=== PATIENT | male | born 1955 | race African-American/Black ===

== ENCOUNTER → 2016-04-27 | Outpatient (CLI) | payer OTHER ==
[~2016-04-27] MED LIST: INFLIXIMAB IV ONE; SODIUM CHLORIDE 0.9% 250 ML in EMPTY BAG 1 BAG IV PRN; SODIUM CHLORIDE 0.9% 500 ML in EMPTY BAG 1 BAG IV PRN; SODIUM CHLORIDE 0.9% IV ONE
[2016-04-27 12:47] VITALS: RESP 18; TEMP 98.1
[2016-04-27 14:42] VITALS: BP 167/76; PULSE 58
[2016-04-27 15:16] LABS: Aty Lym Flag Marked; CHCM 33.2; HCT 48.4 % (39.0-53.0); HDW 2.73; HGB 15.9 gm/dL (13.0-17.5); MCV 87.9 fL (80.0-100.0); Mean Platelet Volume 10.6; RBC 5.51 m/uL (4.30-5.90); RDW 13.6 % (11.5-15.5); WBC 9.2 k/uL (3.8-10.6); WBC (Perox) 12.87
[2016-04-27 15:32] LABS: ALT 50 U/L (21-72); AST 32 U/L (17-59); Alkaline Phosphatase 104 U/L (38-126); Anion Gap 13 mmol/L; Bilirubin, Delta 0.2 mg/dL (0.0-0.2); Blood Urea Nitrogen 18 mg/dL (9-20); Calcium 8.9 mg/dL (8.4-10.2); Carbon Dioxide 25 mmol/L (22-30); Chloride 102 mmol/L (98-107); Glucose 85 mg/dL (74-99); Non-African American GFR(MDRD) >60 (>60 ml/min/1.73 sqM); Potassium 4.6 mmol/L (3.5-5.1); Sodium 140 mmol/L (137-145); Total Bilirubin 0.5 mg/dL (0.2-1.3); Total Protein 7.9 g/dL (6.3-8.2)
[2016-04-27 16:27] LABS: Add Differential Manual Differential
[2016-04-27 16:28] LABS: Nucleated Red Blood Cells 0 /100 WBC (0-0); Total Cells Counted 100
[2016-04-27 17:08] LABS: Appearance,Urine Clear (Clear); Bilirubin,Urine Negative (Negative); Glucose,Urine (UA) Negative (Negative); Ketones,Urine Negative (Negative); Leukocyte Esterase,Urine Negative (Negative); Nitrite,Urine Negative (Negative); PH, Urine 6.5 (5.0-8.0); Particle Count 1571; Protein,Urine 1+ (Negative); RBC,Urine 3 /hpf (0-5); Specific Gravity,Urine 1.022 (1.001-1.035); Sperm,Urine Occasional /hpf; Squamous Epithelial Cell,Urine <1 /hpf (0-4); UA Billing (MACRO vs. MICRO) MICRO; WBC,Urine 1 /hpf (0-5)
[2016-04-27 19:22] LABS: Erythrocyte Sedimentation Rate 11 mm/hr (0-15)
== END | disposition home or self-care (01) ==
LOC: PROCWHC3 12:11
PROVIDERS: ATTEND Internal Medicine Rheumatology
DX: L40.59 Other psoriatic arthropathy (principal)
CPT/HCPCS: 80053; 85652; 82248; 85025; 81001; 96361; 96413; 96415; 36415; J1745

== ENCOUNTER → 2016-07-20 | Outpatient (CLI) | payer OTHER ==
[~2016-07-20] MED LIST changes: +INFLIXIMAB IV NR; -INFLIXIMAB IV ONE; +SODIUM CHLORIDE 0.9% IV NR; -SODIUM CHLORIDE 0.9% IV ONE
[2016-07-20 10:23] VITALS: RESP 16; TEMP 98
[2016-07-20 11:04] LABS: Basophils # (A) 0.1 k/uL (0-0.2); Basophils % (A) 1 %; CH 28.9; CHCM 33.2; Eosinophils # (A) 0.5 k/uL (0-0.7); Eosinophils % (A) 6 %; HCT 46.6 % (39.0-53.0); HDW 2.69; HGB 15.5 gm/dL (13.0-17.5); Luc # (Auto) 0.29; Luc % (Auto) 4; Lymphocytes # (A) 2.9 k/uL (1.0-4.8); Lymphocytes % (A) 35 %; MCH 29.2 pg (25.0-35.0); MCHC 33.3 g/dL (31.0-37.0); MCV 87.6 fL (80.0-100.0); Mean Platelet Volume 9.6; Monocytes # (A) 0.4 k/uL (0-1.0); Monocytes % (A) 5 %; Neutrophils # (A) 4.1 k/uL (1.3-7.7); Neutrophils % (A) 50 %; RBC 5.32 m/uL (4.30-5.90); RDW 13.8 % (11.5-15.5); WBC 8.2 k/uL (3.8-10.6); WBC (Perox) 7.85
[2016-07-20 11:23] LABS: ALT 50 U/L (21-72); AST 36 U/L (17-59); Alkaline Phosphatase 97 U/L (38-126); Anion Gap 9 mmol/L; Bilirubin, Delta 0.4 mg/dL (0.0-0.2); Blood Urea Nitrogen 15 mg/dL (9-20); Calcium 8.7 mg/dL (8.4-10.2); Carbon Dioxide 26 mmol/L (22-30); Chloride 103 mmol/L (98-107); Glucose 131 mg/dL (74-99); Non-African American GFR(MDRD) >60 (>60 ml/min/1.73 sqM); Sodium 138 mmol/L (137-145); Total Bilirubin 0.8 mg/dL (0.2-1.3); Total Protein 7.6 g/dL (6.3-8.2)
[2016-07-20 11:25] LABS: Potassium 4.3 mmol/L (3.5-5.1)
[2016-07-20 11:43] VITALS: PULSE 56
[2016-07-20 11:44] VITALS: BP 142/70
[2016-07-20 11:59] LABS: Erythrocyte Sedimentation Rate 11 mm/hr (0-15)
[2016-07-20 13:47] LABS: Appearance,Urine Clear (Clear); Bilirubin,Urine Negative (Negative); Glucose,Urine (UA) Negative (Negative); Ketones,Urine Negative (Negative); Leukocyte Esterase,Urine Negative (Negative); Nitrite,Urine Negative (Negative); PH, Urine 6.5 (5.0-8.0); Protein,Urine Negative (Negative); UA Billing (MACRO vs. MICRO) CHEM; Urobilinogen,Urine <2.0 mg/dL (<2.0)
== END | disposition home or self-care (01) ==
LOC: PROCWHC3 09:58
PROVIDERS: ATTEND Internal Medicine Rheumatology
DX: L40.59 Other psoriatic arthropathy (principal)
CPT/HCPCS: 80053; 85652; 82248; 85025; 81003; 96413; 96415; 36415; J1745

== ENCOUNTER → 2016-08-31 | Outpatient (CLI) | payer OTHER ==
[~2016-08-31] MED LIST changes: +ACETAMINOPHEN TAB 325 MG TAB PO ONE; -INFLIXIMAB IV NR; +INFLIXIMAB IV ONE; -SODIUM CHLORIDE 0.9% IV NR; +SODIUM CHLORIDE 0.9% IV ONE; +diphenhydrAMINE 25 MG CAP PO ONE; +diphenhydrAMINE 50 MG/ML 1 ML VIAL IVP ONE
[2016-08-31 13:34] VITALS: RESP 18
[2016-08-31 14:02] VITALS: BP 132/63; PULSE 59
== END | disposition home or self-care (01) ==
LOC: PROCWHC3 11:54
PROVIDERS: ATTEND Internal Medicine Rheumatology
DX: L40.50 Arthropathic psoriasis, unspecified (principal)
CPT/HCPCS: 96361; 96413; 96415; J1200; J1745

== ENCOUNTER → 2016-10-12 | Outpatient (CLI) | payer OTHER ==
[2016-10-12 12:25] VITALS: TEMP 98.1
[2016-10-12 13:00] LABS: Basophils % (A) 0 %; CH 28.7; Eosinophils % (A) 0 %; HCT 47.6 % (39.0-53.0); HDW 2.61; HGB 15.8 gm/dL (13.0-17.5); Luc # (Auto) 0.09; Luc % (Auto) 1; Lymphocytes # (A) 1.3 k/uL (1.0-4.8); Lymphocytes % (A) 19 %; MCH 29.1 pg (25.0-35.0); MCHC 33.3 g/dL (31.0-37.0); MCV 87.4 fL (80.0-100.0); Mean Platelet Volume 10.1; Monocytes # (A) 0.2 k/uL (0-1.0); Monocytes % (A) 3 %; Neutrophils # (A) 5.4 k/uL (1.3-7.7); Neutrophils % (A) 77 %; RBC 5.44 m/uL (4.30-5.90); RDW 13.4 % (11.5-15.5); WBC (Perox) 7.17
[2016-10-12 13:59] VITALS: BP 156/73; PULSE 58; RESP 16
[2016-10-12 14:17] LABS: Erythrocyte Sedimentation Rate 14 mm/hr (0-15)
[2016-10-12 16:00] LABS: Appearance,Urine Clear (Clear); Bilirubin,Urine Negative (Negative); Glucose,Urine (UA) Negative (Negative); Ketones,Urine Negative (Negative); Leukocyte Esterase,Urine Negative (Negative); Nitrite,Urine Negative (Negative); Protein,Urine Negative (Negative); Specific Gravity,Urine 1.009 (1.001-1.035); UA Billing (MACRO vs. MICRO) CHEM; Urobilinogen,Urine <2.0 mg/dL (<2.0)
[2016-10-12 16:13] LABS: ALT 50 U/L (21-72); AST 31 U/L (17-59); Alkaline Phosphatase 99 U/L (38-126); Anion Gap 11 mmol/L; Blood Urea Nitrogen 17 mg/dL (9-20); Calcium 9.1 mg/dL (8.4-10.2); Carbon Dioxide 24 mmol/L (22-30); Chloride 102 mmol/L (98-107); Glucose 121 mg/dL (74-99); Non-African American GFR(MDRD) >60 (>60 ml/min/1.73 sqM); Potassium 4.7 mmol/L (3.5-5.1); Sodium 137 mmol/L (137-145); Total Bilirubin 0.6 mg/dL (0.2-1.3); Total Protein 7.5 g/dL (6.3-8.2)
== END | disposition home or self-care (01) ==
LOC: PROCWHC3 12:03
PROVIDERS: ATTEND Internal Medicine Rheumatology
DX: L40.50 Arthropathic psoriasis, unspecified (principal)
CPT/HCPCS: 80053; 85652; 85025; 81003; 36430; 36415; J1745

== ENCOUNTER → 2016-11-29 | Outpatient (CLI) | payer OTHER | END | disposition home or self-care (01) | LOC: RADMRIMAIN 19:04 | PROVIDERS: ATTEND Internal Medicine Rheumatology | DX: Z53.9 Procedure and treatment not carried out, unspecified reason (principal) ==

== ENCOUNTER → 2016-11-30 | Outpatient (CLI) | payer OTHER ==
[~2016-11-30] MED LIST changes: -SODIUM CHLORIDE 0.9% 250 ML in EMPTY BAG 1 BAG IV PRN; +diphenhydrAMINE 50 MG CAP PO STA
[2016-11-30 12:17] VITALS: TEMP 98.2
[2016-11-30 12:31] LABS: Basophils # (A) 0.1 k/uL (0-0.2); Basophils % (A) 1 %; CH 29.6; CHCM 33.9; Eosinophils # (A) 0.4 k/uL (0-0.7); Eosinophils % (A) 5 %; HCT 45.7 % (39.0-53.0); HDW 2.63; HGB 15.6 gm/dL (13.0-17.5); Luc # (Auto) 0.41; Luc % (Auto) 4; Lymphocytes % (A) 32 %; MCH 29.9 pg (25.0-35.0); MCHC 34.1 g/dL (31.0-37.0); MCV 87.7 fL (80.0-100.0); Mean Platelet Volume 10.2; Monocytes # (A) 0.7 k/uL (0-1.0); Monocytes % (A) 7 %; Neutrophils # (A) 4.8 k/uL (1.3-7.7); Neutrophils % (A) 52 %; RBC 5.21 m/uL (4.30-5.90); RDW 14.9 % (11.5-15.5); WBC 9.3 k/uL (3.8-10.6); WBC (Perox) 8.62
[2016-11-30 12:39] LABS: ALT 55 U/L (21-72); AST 33 U/L (17-59); Alkaline Phosphatase 108 U/L (38-126); Anion Gap 9 mmol/L; Blood Urea Nitrogen 17 mg/dL (9-20); Calcium 8.9 mg/dL (8.4-10.2); Carbon Dioxide 25 mmol/L (22-30); Chloride 103 mmol/L (98-107); Glucose 91 mg/dL (74-99); Non-African American GFR(MDRD) >60 (>60 ml/min/1.73 sqM); Potassium 4.4 mmol/L (3.5-5.1); Sodium 137 mmol/L (137-145); Total Bilirubin 0.5 mg/dL (0.2-1.3); Total Protein 7.5 g/dL (6.3-8.2)
[2016-11-30 12:49] VITALS: RESP 18
[2016-11-30 13:44] VITALS: BP 147/68; PULSE 56
[2016-11-30 16:01] LABS: Erythrocyte Sedimentation Rate 11 mm/hr (0-15)
[2016-11-30 16:11] LABS: Appearance,Urine Clear (Clear); Bilirubin,Urine Negative (Negative); Glucose,Urine (UA) Negative (Negative); Ketones,Urine Negative (Negative); Leukocyte Esterase,Urine Negative (Negative); Nitrite,Urine Negative (Negative); PH, Urine 7.5 (5.0-8.0); Protein,Urine Negative (Negative); Specific Gravity,Urine 1.015 (1.001-1.035); UA Billing (MACRO vs. MICRO) CHEM; Urobilinogen,Urine <2.0 mg/dL (<2.0)
== END | disposition home or self-care (01) ==
LOC: PROCWHC3 11:51
PROVIDERS: ATTEND Internal Medicine Rheumatology
DX: L40.50 Arthropathic psoriasis, unspecified (principal)
CPT/HCPCS: 80053; 85652; 85025; 81003; 96361; 96413; 96415; 36415; J1745

== ENCOUNTER → 2017-02-01 | Outpatient (CLI) | payer OTHER ==
[~2017-02-01] MED LIST changes: -diphenhydrAMINE 50 MG CAP PO STA
[2017-02-01 12:41] VITALS: TEMP 98.6
[2017-02-01 13:18] LABS: Basophils # (A) 0.1 k/uL (0-0.2); Basophils % (A) 1 %; CH 28.8; CHCM 32.4; Eosinophils # (A) 0.5 k/uL (0-0.7); Eosinophils % (A) 5 %; HCT 47.9 % (39.0-53.0); HDW 2.47; HGB 15.3 gm/dL (13.0-17.5); Luc # (Auto) 0.29; Luc % (Auto) 3; Lymphocytes # (A) 3.3 k/uL (1.0-4.8); Lymphocytes % (A) 32 %; MCH 28.5 pg (25.0-35.0); MCV 89.2 fL (80.0-100.0); Mean Platelet Volume 10.2; Monocytes % (A) 9 %; Neutrophils # (A) 5.4 k/uL (1.3-7.7); Neutrophils % (A) 51 %; RBC 5.37 m/uL (4.30-5.90); RDW 14.8 % (11.5-15.5); WBC 10.5 k/uL (3.8-10.6); WBC (Perox) 10.69
[2017-02-01 13:31] VITALS: RESP 14
[2017-02-01 13:40] LABS: ALT 59 U/L (21-72); AST 33 U/L (17-59); Alkaline Phosphatase 109 U/L (38-126); Anion Gap 9 mmol/L; Blood Urea Nitrogen 23 mg/dL (9-20); Calcium 9.3 mg/dL (8.4-10.2); Carbon Dioxide 27 mmol/L (22-30); Chloride 101 mmol/L (98-107); Glucose 91 mg/dL (74-99); Non-African American GFR(MDRD) >60 (>60 ml/min/1.73 sqM); Potassium 4.2 mmol/L (3.5-5.1); Sodium 137 mmol/L (137-145); Total Bilirubin 0.3 mg/dL (0.2-1.3); Total Protein 7.6 g/dL (6.3-8.2)
[2017-02-01 14:19] LABS: Erythrocyte Sedimentation Rate 19 mm/hr (0-15)
[2017-02-01 15:51] VITALS: BP 122/61; PULSE 5
[2017-02-01 16:32] LABS: Appearance,Urine Clear (Clear); Bilirubin,Urine Negative (Negative); Glucose,Urine (UA) Negative (Negative); Ketones,Urine Negative (Negative); Leukocyte Esterase,Urine Negative (Negative); Nitrite,Urine Negative (Negative); PH, Urine 5.5 (5.0-8.0); Protein,Urine Trace (Negative); Specific Gravity,Urine 1.028 (1.001-1.035); UA Billing (MACRO vs. MICRO) CHEM; Urobilinogen,Urine <2.0 mg/dL (<2.0)
== END | disposition home or self-care (01) ==
LOC: PROCWHC3 12:27
PROVIDERS: ATTEND Internal Medicine Rheumatology
DX: L40.50 Arthropathic psoriasis, unspecified (principal)
CPT/HCPCS: 80053; 85652; 85025; 81003; 96361; 96375; 96413; 96415; 36415; J1200; J1745

== ENCOUNTER → 2017-03-14 | Outpatient (CLI) | payer OTHER ==
[~2017-03-14] MED LIST changes: -INFLIXIMAB IV ONE; -SODIUM CHLORIDE 0.9% IV ONE
[2017-03-14 12:03] VITALS: TEMP 97.9
[2017-03-14] MEDS: SODIUM CHLORIDE 0.9% IV ONE ×2 (12:04→12:13)
[2017-03-14] MEDS: INFLIXIMAB IV ONE ×2 (12:04→12:13)
[2017-03-14 12:32] LABS: Basophils # (A) 0.1 k/uL (0-0.2); Basophils % (A) 1 %; Eosinophils # (A) 0.4 k/uL (0-0.7); Eosinophils % (A) 5 %; HCT 45.2 % (39.0-53.0); HGB 14.7 gm/dL (13.0-17.5); Lymphocytes # (A) 2.9 k/uL (1.0-4.8); Lymphocytes % (A) 33 %; MCH 28.5 pg (25.0-35.0); MCHC 32.6 g/dL (31.0-37.0); MCV 87.4 fL (80.0-100.0); Mean Platelet Volume 9.9; Monocytes # (A) 0.5 k/uL (0-1.0); Monocytes % (A) 6 %; Neutrophils # (A) 4.7 k/uL (1.3-7.7); Neutrophils % (A) 54 %; Platelet Count 153 k/uL (150-450); RBC 5.16 m/uL (4.30-5.90); RDW 15.2 % (11.5-15.5); WBC 8.8 k/uL (3.8-10.6)
[2017-03-14 12:41] LABS: Albumin 3.8 g/dL (3.5-5.0); Anion Gap 9 mmol/L; Calcium 9.2 mg/dL (8.4-10.2); Carbon Dioxide 27 mmol/L (22-30); Chloride 99 mmol/L (98-107); Glucose 121 mg/dL (74-99); Sodium 135 mmol/L (137-145); Total Bilirubin 0.8 mg/dL (0.2-1.3); Total Protein 7.7 g/dL (6.3-8.2)
[2017-03-14 12:47] LABS: Potassium 4.4 mmol/L (3.5-5.1)
[2017-03-14 12:48] LABS: ALT 61 U/L (21-72); AST 41 U/L (17-59); Alkaline Phosphatase 88 U/L (38-126); Blood Urea Nitrogen 17 mg/dL (9-20)
[2017-03-14 13:12] VITALS: BP 153/83; PULSE 66; RESP 15
[2017-03-14 14:52] LABS: Erythrocyte Sedimentation Rate 14 mm/hr (0-15)
[2017-03-14 15:48] LABS: Appearance,Urine Clear (Clear); Bilirubin,Urine Negative (Negative); Blood,Urine Negative (Negative); Color,Urine Yellow; Glucose,Urine (UA) Negative (Negative); Ketones,Urine Negative (Negative); Leukocyte Esterase,Urine Negative (Negative); Nitrite,Urine Negative (Negative); PH, Urine 7.5 (5.0-8.0); Protein,Urine Negative (Negative); Specific Gravity,Urine 1.014 (1.001-1.035); Urobilinogen,Urine <2.0 mg/dL (<2.0)
== END | disposition home or self-care (01) ==
LOC: PROCWHC3 11:45
PROVIDERS: ATTEND Internal Medicine Rheumatology
DX: L40.50 Arthropathic psoriasis, unspecified (principal)
CPT/HCPCS: 80053; 85652; 85025; 81003; 96361; 96375; 96413; 96415; 36415; J1200; J1745

== ENCOUNTER → 2017-06-07 | Outpatient (CLI) | payer BC ==
[2017-06-07 16:40] LABS: Potassium 4.2 mmol/L (3.5-5.1)
== END | disposition home or self-care (01) ==
LOC: LABWHC1 16:07
PROVIDERS: ATTEND Orthopaedic Surgery
DX: Z01.812 Encounter for preprocedural laboratory examination (principal); M67.02 Short Achilles tendon (acquired), left ankle
CPT/HCPCS: 36415; 80051

== ENCOUNTER 2017-11-15 07:25 | Day surgery (SDC) | payer BC ==
[2017-11-12 09:17] VITALS: BMI 35.3
[2017-11-15 07:43] VITALS: TEMP 97.2
[2017-11-15] MEDS: LACTATED RINGERS 1,000 ML IV SCH ×2 (07:44→07:50)
[2017-11-15] MEDS ORDERED: LIDOCAINE 1% 20 ML VIAL (10MG/ML) FOR IV START INTRADERMA ONE (07:45)
[2017-11-15] MEDS ORDERED: LIDOCAINE 1% INJ 10MG/ML (20 ML MDV) ONE (07:53)
[2017-11-15] MEDS ORDERED: PROPOFOL 10 MG/ML 20 ML VIAL IV ONE (07:53)
--- NOTE | 2017-11-15 07:56 | P.GSHP ---
History of Present Illness H&P Date: 11/15/17 Chief Complaint: Colon cancer screening Patient here today for screening colonoscopy. He does have a history of colon polyps. Last colonoscopy 10 years ago. No family history of colon cancer. No bowel complaints. Past Medical History Past Medical History: Hearing Disorder / Deafness, Hyperlipidemia, Hypertension , Skin Disorder Additional Past Medical History / Comment(s): hearing aid right ear, psoriasis, arthritis, L shoulder fracture 1986 History of Any Multi-Drug Resistant Organisms: None Reported Past Surgical History: Tonsillectomy Additional Past Surgical History / Comment(s): colonoscopy Past Anesthesia/Blood Transfusion Reactions: No Reported Reaction Smoking Status: Former smoker - Past Family History Mother Family Medical History: No Reported History Medications and Allergies Home Medications Medication Instructions Recorded Confirmed Type Aspirin 81 mg PO DAILY 07/28/13 11/15/17 History Lisinopril [Prinivil] 40 mg PO DAILY 07/28/13 11/15/17 History inFLIXimab [Remicade] 900 mg IV DIRECTED 03/19/14 11/15/17 History Cholecalciferol [Vitamin D3] 1.25 mg PO SA 02/01/17 11/15/17 History Hydrochlorothiazide [Hydrodiuril] 50 mg PO DAILY 02/01/17 11/15/17 History Metoprolol Succinate [Toprol XL] 12.5 mg PO BID 02/01/17 11/15/17 History Pravastatin Sodium [Pravachol] 40 mg PO DAILY 02/01/17 11/15/17 History Gabapentin [Neurontin] 400 mg PO TID 11/12/17 11/15/17 History Multivitamin [Men's Multi-Vitamin] 1 each PO DAILY 11/12/17 11/15/17 History Allergies Allergy/AdvReac Type Severity Reaction Status Date / Time No Known Allergies Allergy Verified 11/15/17 07:34 Surgical - Exam Vital Signs Temp Pulse Resp BP Pulse Ox 97.2 F L 55 L 20 141/64 96 11/15/17 07:40 11/15/17 07:40 11/15/17 07:40 11/15/17 07:40 11/15/17 07:40 Physical exam: General: Well-developed, well-nourished HEENT: Normocephalic, sclerae nonicteric Abdomen: Nontender, nondistended Extremities: No edema Neuro: Alert and oriented Assessment and Plan (1) Colon cancer screening Narrative/Plan: Will proceed with colonoscopy Current Visit: Yes Status: Acute Code(s): Z12.11 - ENCOUNTER FOR SCREENING FOR MALIGNANT NEOPLASM OF COLON SNOMED Code(s): 274849346
--- NOTE | 2017-11-15 08:13 | P.PCN ---
Date of Procedure: 11/15/17 Procedure(s) Performed: PREOPERATIVE DIAGNOSIS: Colon cancer screening with history of polyps POSTOPERATIVE DIAGNOSIS: Transverse colon polyp, diverticulosis PROCEDURE: Colonoscopy with snare polypectomy ANESTHESIA: MAC SURGEON: Gaurav Neil M.D. SPECIMENS: Polyp ENDOSCOPIC PROCEDURE: The patient was placed on the endoscopy table in the left decubitus position. The Olympus colonoscope was inserted into the anus and passed under direct visualization to the base of the cecum. The appendiceal orifice was visualized. From that point the scope was slowly withdrawn inspecting all surfaces carefully. There were no neoplastic inflammatory or polypoid lesions throughout the cecum or ascending colon. In the proximal transverse colon a small polyp was identified and removed using the snare with cautery technique. The remainder of the transverse descending sigmoid and rectum appeared free of abnormalities. There was mild sigmoid diverticulosis. Digital rectal examination was normal. The patient was taken to the recovery room in stable condition per anesthesia guidelines. RECOMMENDATIONS: Await biopsy results. Recommend follow-up colonoscopy 5 years.
[2017-11-15 08:49] VITALS: BP 117/58; PULSE 58; RESP 18
[2017-11-15] MEDS ORDERED: IV FLUID CONTINUATION 1,000 ML IV ONE (09:00)
== END 2017-11-15 09:04 | disposition home or self-care (01) ==
LOC: ORWHC2ENDO 07:25
PROVIDERS: ATTEND Surgery
DX: Z12.11 Encounter for screening for malignant neoplasm of colon (principal); D12.3 Benign neoplasm of transverse colon; K57.30 Diverticulosis of large intestine without perforation or abscess without bleeding; I10 Essential (primary) hypertension; E78.5 Hyperlipidemia, unspecified; M19.90 Unspecified osteoarthritis, unspecified site; L40.9 Psoriasis, unspecified; J45.909 Unspecified asthma, uncomplicated; H91.91 Unspecified hearing loss, right ear; G47.33 Obstructive sleep apnea (adult) (pediatric); Z86.010 Personal history of colon polyps; Z79.82 Long term (current) use of aspirin; Z79.899 Other long term (current) drug therapy; Z87.891 Personal history of nicotine dependence; Z97.4 Presence of external hearing-aid
CPT/HCPCS: 45385; 88305

== ENCOUNTER → 2018-04-15 | Outpatient (CLI) | payer BC ==
--- NOTE | 2018-04-15 21:06 | CONS ---
CONSULTATION REASON FOR CONSULTATION: Sleep apnea. This is a 62-year-old -[place] male patient coming in with symptoms of loud snoring, sleep fragmentation, witnessed apneas as reported by his fiancee, and excessive daytime sleepiness. His current Ravia score is 13. He goes to bed around 9:20 p.m., wakes up at 4 a.m. in the morning. He feels non-refreshed, tired and sleepy during the day. He does not take any naps. However, he feels very sleepy. PAST MEDICAL HISTORY: 1. Hypertension. 2. Hyperlipidemia. 3. Chronic back pain. 4. Obesity. PAST SURGICAL HISTORY: Includes bone spur removed from the leg/foot. SOCIAL HISTORY: The patient is a nonsmoker. No history of alcoholism. No history of IV drugs. FAMILY HISTORY: Negative for sleep apnea. OUTPATIENT MEDICATION LIST: Includes: 1. Gabapentin 400 mg 1 tablet a day. 2. Metoprolol 25 mg half a tablet twice a day. 3. Norvasc 5 mg p.o. daily. 4. Hydrochlorothiazide 50 mg p.o. daily. 5. Vitamin 125 mcg p.o. daily. 6. Atorvastatin 40 mg p.o. daily. 7. Lisinopril 40 mg p.o. daily. REVIEW OF SYSTEMS: Twelve-point review of systems was done. The patient has loud snoring, witnessed apneas, nocturia. No restlessness in the lower extremities. No grinding of the teeth. He wakes up with a dry mouth. No anxiety or panic. No palpitations. No heartburn. No gasping for air. No sweating. No claustrophobia. No sexual dysfunction. No history of any motor vehicle accident because of feeling drowsy or sleepy. No sleep paralysis, hallucinations or cataplexy. PHYSICAL EXAMINATION: BP is 122/58, pulse 58, respirations 16, temperature 97.8, saturation 96% on room air. Weight is 283. Height is 6 feet 0 inches. BMI 38.2. Neck size is 21-1/2 inches. GENERAL APPEARANCE: Calm, comfortable. Head is atraumatic, normocephalic. Neck is short, supple. Crowding of the posterior pharynx. There is no goiter or neck masses. LUNGS: Clear to auscultation. Heart sounds are regular rate and rhythm. Normal S1, S2. No S3, S4. No murmurs. ABDOMEN: Soft, nontender. No organomegaly. EXTREMITIES: No edema. No cyanosis or clubbing. NEUROLOGIC: Alert and oriented x3. No focal neurological deficits. PSYCHIATRIC: Negative for anxiety or depression. IMPRESSION: 1. Hypersomnia, likely secondary to obstructive sleep apnea. Overall suspicion for DUC is high. Current Ravia Score is 13. 2. Obesity with a body mass index of 38. 3. Hypertension. 4. Hyperlipidemia. 5. Chronic back pain. PLAN: 1. Will proceed with a screening polysomnogram. 2. Encourage weight loss. 3. Implement good sleep hygiene measures. 4. Will continue to follow and make further recommendations based on the results of the sleep study. MMTERESITAL / IJN: [id number] /
== END | disposition home or self-care (01) ==
LOC: SLEEP 15:38
PROVIDERS: ATTEND Internal Medicine Critical Care Medicine
DX: G47.10 Hypersomnia, unspecified (principal); E66.9 Obesity, unspecified; I10 Essential (primary) hypertension; E78.5 Hyperlipidemia, unspecified; M54.9 Dorsalgia, unspecified; G89.29 Other chronic pain; Z68.38 Body mass index [BMI] 38.0-38.9, adult; Z79.899 Other long term (current) drug therapy
CPT/HCPCS: 99211

== ENCOUNTER → 2018-07-15 | Outpatient (CLI) | payer BC ==
--- NOTE | 2018-07-15 19:10 | PN ---
PROGRESS NOTE This is a 63-year-old male patient with severe symptomatic obstructive sleep apnea with an AHI of 32, and currently the patient is coming in for a compliancy check, as the patient is utilizing an APAP, minimum of 10 and maximum pressure of 16 cm of water. He is feeling better. He is much more alert and awake during the day. His only issue is that he wakes up around 1 to 1:30 a.m. and he is unable to go back to sleep and ultimately gets out of bed around 3 a.m. in the morning. He has to be at work early, and he goes to bed around 9 p.m. He has no difficulty with sleep induction. Between 9 p.m. and 1 a.m. he is treated, and the compliance data reflect that. Note that even while awake, the patient is wearing his CPAP unit, and the patient's compliance data reflect that. The patient has been averaging 6.4 hours of APAP use per night and his average pressure is around 13 and his leak is 18 L/minute. His AHI while on treatment is down to 3.7. He has no specific complaints other than the nighttime arousals. He is also interested in obtaining a nose pillow, knowing that he is currently using the AirTouch full-face mask. REVIEW OF SYSTEMS: Fourteen-point review of system was done. Positive findings are all mentioned above in the history of present illness. Hypersomnia is improved and the patient's [place] score is down to 7. He has chronic back pain. No angina. No palpitations. No shortness of breath. No heartburn. No sleepwalking or sleeptalking. No morning headaches. No altered mentation during the day. PHYSICAL EXAMINATION: CURRENT VITALS: Blood pressure 106/67, pulse 58, respirations 16, temperature 98.1, weight 261, saturation 98% on room air. GENERAL APPEARANCE: Calm, comfortable. Head is atraumatic, normocephalic. Neck is short, supple. Crowding of the posterior pharynx. There is no goiter or neck masses. LUNGS: Clear to auscultation. HEART: Heart sounds are regular rate and rhythm. Normal S1, S2. No S3, S4. No murmurs. ABDOMEN: Soft, nontender. No organomegaly. EXTREMITIES: No edema. No cyanosis or clubbing. Neurologically alert and oriented x3. No focal neurological deficits. PSYCHIATRIC: Negative for anxiety or depression. Skin is negative for any wounds or ulceration. IMPRESSION: 1. Severe obstructive sleep apnea with an apnea/hypopnea index of 32, currently on CPAP. The patient is utilizing an APAP mode, minimum pressure of 10, maximum pressure of 16, and his treatment is successful. 2. Sleep maintenance insomnia. After sleeping for a total of 4 to 4-1/2 hours, the patient will wake up, and he is unable to go back to sleep. He has no difficulties in sleep initiation. This has been a sleep pattern, even utilizing the CPAP unit. 3. Obesity with a body mass index of 38.3. 4. Hypertension. 5. Hyperlipidemia. 6. Chronic back pain. PLAN: 1. Will offer this patient the Nuance nose pillows. 2. Chin strap if needed. 3. Encourage weight loss. 4. Continue APAP mode. 5. Compliance data was checked, and the patient is very compliant. 6. Add Ambien 5 mg for sleep maintenance. He needs to take the Ambien around 9 p.m. prior to going to sleep; never after midnight. 7. Will continue to follow and the patient will see me back in 6 months' time in followup for an update. MMODL / IJN: [id number] /
== END ==
LOC: SLEEP 16:09
PROVIDERS: ATTEND Internal Medicine Critical Care Medicine
DX: G47.33 Obstructive sleep apnea (adult) (pediatric) (principal); F51.02 Adjustment insomnia; E66.9 Obesity, unspecified; I10 Essential (primary) hypertension; E78.5 Hyperlipidemia, unspecified; G89.29 Other chronic pain; M54.9 Dorsalgia, unspecified; Z68.38 Body mass index [BMI] 38.0-38.9, adult; Z99.89 Dependence on other enabling machines and devices

== ENCOUNTER → 2019-05-05 | Outpatient (CLI) | payer BC ==
[2019-05-05 09:21] LABS: Prothrombin Time 10.7 sec (9.0-12.0)
[2019-05-05 09:36] LABS: Basophils # (A) 0.1 k/uL (0-0.2); Basophils % (A) 1 %; Eosinophils # (A) 0.4 k/uL (0-0.7); Eosinophils % (A) 4 %; HCT 49.8 % (39.0-53.0); HGB 15.9 gm/dL (13.0-17.5); Lymphocytes # (A) 2.9 k/uL (1.0-4.8); Lymphocytes % (A) 33 %; MCH 27.6 pg (25.0-35.0); MCHC 31.9 g/dL (31.0-37.0); MCV 86.7 fL (80.0-100.0); Mean Platelet Volume 10.2; Monocytes # (A) 0.6 k/uL (0-1.0); Monocytes % (A) 7 %; Neutrophils # (A) 4.6 k/uL (1.3-7.7); Neutrophils % (A) 52 %; Platelet Count 168 k/uL (150-450); RBC 5.75 m/uL (4.30-5.90); RDW 13.6 % (11.5-15.5); WBC 8.8 k/uL (3.8-10.6)
[2019-05-05 09:50] LABS: ALT 31 U/L (4-49); AST 32 U/L (17-59); African American GFR (CKD) >90 (>60 ml/min/1.73 sqM); Albumin 4.2 g/dL (3.5-5.0); Alkaline Phosphatase 97 U/L (38-126); Anion Gap 11 mmol/L; Blood Urea Nitrogen 22 mg/dL (9-20); Calcium 9.3 mg/dL (8.4-10.2); Carbon Dioxide 27 mmol/L (22-30); Chloride 99 mmol/L (98-107); Creatine Kinase 223 U/L (55-170); Glucose 99 mg/dL (74-99); Magnesium 1.7 mg/dL (1.6-2.3); Non-African American GFR(CKD) 87 (>60 ml/min/1.73 sqM); Potassium 4.2 mmol/L (3.5-5.1); Sodium 137 mmol/L (137-145); Total Bilirubin 0.8 mg/dL (0.2-1.3); Total Protein 8.1 g/dL (6.3-8.2)
--- NOTE | 2019-05-05 09:51 | US ---
EXAMINATION TYPE: US abdomen complete DATE OF EXAM: 05/05/2019 COMPARISON: NONE CLINICAL HISTORY: 63-year-old male R10.9 abdominal pain. Left sided abdominal pain. TECHNIQUE: Multiple sonographic images of the abdomen are obtained. FINDINGS: EXAM MEASUREMENTS: Liver Length: 11.6 cm Gallbladder Wall: 0.5 cm CBD: 0.5 cm Spleen: 10.2 cm Right Kidney: 11.8 x 6.4 x 6.1 cm Left Kidney: 11.5 x 6.3 x 6.8 cm Pancreas: not visualized due to midline bowel gas Liver: Diffuse coarsened echotexture, somewhat more focal hypoechoic appearance involving the legal activity adjudicator ior right liver lobe measuring 4 cm. Gallbladder: no stones seen, wall appears mildly thickened. No surrounding fluid. Evidence for sonographic Griffin's sign: No CBD: wnl Spleen: limited visualization, coarse echotexture Right Kidney: cyst in the upper pole sinus measures 2.6 x 2.3 x 2.5 cm . No hydronephrosis. Left Kidney: No hydronephrosis. Upper IVC: wnl Abd Aorta: visualized portions wnl IMPRESSION: 1. Heterogeneous appearance to the liver. Correlate for underlying nonspecific hepatocellular disease . More focal hypoechoic area posterior right liver lobe could represent an area of fatty sparing. The possibility of a mass is difficult to exclude at this time. Contrast-enhanced CT or MRI can further evaluate. 2. Nonspecific mild gallbladder wall thickening. This can be seen when there is adjacent inflammation or in fluid overload states. No ancillary imaging findings of acute cholecystitis. If concern for ch ronic cholecystitis, HIDA scan with ejection fraction can be considered.
--- NOTE | 2019-05-05 10:25 | XR ---
EXAMINATION TYPE: XR chest 2V DATE OF EXAM: 05/05/2019 COMPARISON: 01/03/2013 HISTORY: 63-year-old male COPD, presurgical evaluation TECHNIQUE: Frontal and lateral views FINDINGS: Heart normal size. Aorta and pulmonary vasculature within normal limits. Some strandy atelectasis in the lower lungs. No consolidation or pleural effusion. Slight eventration anterior right hemidiaphrag m. IMPRESSION: Some strandy bibasilar atelectasis. Otherwise, no acute process seen.
[2019-05-05 17:43] LABS: % Iron Saturation 33.09 (15.00-50.00); Iron 91 ug/dL (65-175); Total Iron Binding Capacity 275 ug/dL (228-460)
== END | disposition home or self-care (01) ==
LOC: RADUSMAIN 07:52
PROVIDERS: ATTEND Family Medicine
DX: Z01.818 Encounter for other preprocedural examination (principal); J44.9 Chronic obstructive pulmonary disease, unspecified; R10.9 Unspecified abdominal pain; L40.9 Psoriasis, unspecified; J98.11 Atelectasis
CPT/HCPCS: 71046; 76700; 80053; 82550; 83036; 83540; 83550; 83735; 84443; 85025; 85610; 87070

== ENCOUNTER → 2022-07-09 | Outpatient (CLI) | payer MEDICARE, BC ==
--- NOTE | 2022-07-09 22:58 | MR ---
MRI CERVICAL SPINE: CLINICAL HISTORY: Neck pain for 3 years causing pain or weakness into both arms and fingers . Cervica l disc degeneration per order TECHNIQUE: Multiplanar, multisequence imaging of the cervical spine is performed without IV contrast. COMPARISON: Prior MRI cervical spine September 20, 2010. FINDINGS: Sagittal images of the cervical spine show the craniocervical junction to remain within nor mal limits. The cervical and upper thoracic spinal cord remains normal in course, caliber, and signa l. Vertebral alignment is stable and satisfactory on sagittal images. There is levoconvex scoliosis or positioning centered upper thoracic spine on coronal images. The vertebral body and intravertebra l disk heights are stable and satisfactory. The bone marrow signal intensity remains within normal l imits. Axial images at C2-C3 level shows uncovertebral facet degenerative change with right foraminal disc p rotrusion causing asymmetric moderate right-sided neural foraminal narrowing similar to prior. Axial images at C3-C4 level shows some uncovertebral facet degenerative change causing mild right-joaquin ed neural foraminal narrowing similar to prior. Axial images at C4-C5 level shows central disc protrusion mildly effacing anterior thecal sac with so me uncovertebral facet degenerative change causing moderate right-sided neural foraminal narrowing si milar to prior. Axial images at C5-C6 level shows central disc protrusion effacing the anterior thecal sac nearly up to ventral surface of spinal cord. Bilateral neural foramina are patent. No significant change from p rior. Axial images at C6-C7 level show superior disc extrusion on sagittal image 19 effacing anterior theca l sac with uncovertebral facet degenerative changes causing [id number] bilateral neural foramin al narrowing. Superior disc extrusion is new or more prominent from prior. Axial images at C7-T1 level appear within normal limits. IMPRESSION: Multilevel degenerative change in the cervical spine as detailed above. More prominent di sc extrusion C6-C7 level noted.
== END | disposition home or self-care (01) ==
LOC: RADMRIMAIN 21:45
PROVIDERS: ATTEND Nurse Practitioner Adult Health
DX: M50.323 Other cervical disc degeneration at C6-C7 level (principal); M47.812 Spondylosis without myelopathy or radiculopathy, cervical region
CPT/HCPCS: 72141

== ENCOUNTER → 2022-09-20 | Outpatient (CLI) | payer MEDICARE, BC ==
--- NOTE | 2022-09-20 15:43 | XR ---
EXAMINATION TYPE: XR Hip Complete LT DATE OF EXAM: 09/20/2022 3:40 PM INDICATION: Patient age:Male; 67 years old; Reason for study: M25.552; [facility]. COMPARISON: None. TECHNIQUE: The left hip was examined in the frontal and lateral projections . FINDINGS: No evidence of any acute osseous pathology, joint dislocation, or soft tissue swelling. Sig nificant joint space narrowing or spurring noted. IMPRESSION: No acute osseous pathology.
== END | disposition home or self-care (01) ==
LOC: RADXRMAIN 15:24
PROVIDERS: ATTEND Neurological Surgery
DX: M25.552 Pain in left hip (principal)
CPT/HCPCS: 73502

== ENCOUNTER → 2023-12-03 | Day surgery (SDC) | payer MEDICARE, BC ==
[~2023-12-03] MED LIST changes: -ACETAMINOPHEN TAB 325 MG TAB PO ONE; +PROPOFOL 10 MG/ML 20 ML VIAL IV ONE; -SODIUM CHLORIDE 0.9% 500 ML in EMPTY BAG 1 BAG IV PRN; -diphenhydrAMINE 25 MG CAP PO ONE; -diphenhydrAMINE 50 MG/ML 1 ML VIAL IVP ONE
[2023-12-03] MEDS: IV FLUID CONTINUATION 1,000 ML IV ONE (09:09)
[2023-12-03] MEDS: LACTATED RINGERS 1,000 ML IV SCH (09:10)
[2023-12-03 09:17] VITALS: TEMP 97.5
--- NOTE | 2023-12-03 09:54 | P.PCN ---
Date of Procedure: 12/03/23 Procedure(s) Performed: BRIEF HISTORY: Patient is a 68-year-old pleasant -[place] male scheduled for an elective colonoscopy as a part of screening for colon cancer. PROCEDURE PERFORMED: Colonoscopy. PREOPERATIVE DIAGNOSIS: Screening for colon cancer. IV sedation per Anesthesia. PROCEDURE: After informed consent was obtained, the patient, was brought into the endoscopy unit. IV sedation was administered by Anesthesia under continuous monitoring. Digital rectal examination was normal. Initially the Olympus CF-160 flexible video colonoscope was then inserted in the rectum, gradually advanced into the cecum without any difficulty. Careful examination was performed as the scope was gradually being withdrawn. Ileocecal valve and the appendiceal orifice were visualized and appeared normal. Prep was excellent. Mucosa of the cecum, ascending colon, transverse colon, descending colon, sigmoid colon, and rectum appeared normal. Sigmoid diverticulosis. Retroflexion was performed in the rectum and no lesions were seen. The patient tolerated the procedure well. IMPRESSION: Normal-appearing colon from rectum to cecum with no evidence of colorectal neoplasia Moderate sigmoid diverticulosis. RECOMMENDATIONS: Findings of this examination were discussed with the patient as well as his family. He was advised to have repeat screening colonoscopy in 10 years.
[2023-12-03 10:14] VITALS: BP 127/77; PULSE 67; RESP 16
== END | disposition home or self-care (01) ==
LOC: ORWHC2ENDO 08:31
PROVIDERS: ATTEND Internal Medicine Gastroenterology
DX: Z12.11 Encounter for screening for malignant neoplasm of colon (principal); K57.30 Diverticulosis of large intestine without perforation or abscess without bleeding; I10 Essential (primary) hypertension; E78.5 Hyperlipidemia, unspecified; Z79.899 Other long term (current) drug therapy
CPT/HCPCS: G0121; 45378

== ENCOUNTER → 2024-02-18 | Outpatient (CLI) | payer MEDICARE, BC ==
--- NOTE | 2024-02-18 16:36 | XR ---
EXAMINATION TYPE: XR knee limited RT DATE OF EXAM: 02/18/2024 4:08 PM COMPARISON: None. CLINICAL INDICATION: Male, 68 years old with history of Z91.81 HISTORY OF FALLING, pain TECHNIQUE: 2 view(s) obtained. FINDINGS: There is mild narrowing of the lateral compartment joint space. Minimal medial compartment joint spac e narrowing is present. Patellofemoral joint space is preserved. Patellar spurring is noted anteriorl y and posteriorly. No significant joint effusion is evident. There may be some subtle cortical elevat ion of the proximal fibula. On the AP projection there is a subtle lucency at the head of the fibula. Correlate for pain. No disp laced fracture is identified. IMPRESSION: 1. No acute displaced fractures evident. 2. Occult fracture of the fibular head should be considered. Correlate with pain. 3. Cortical elevation proximal fibula [facility], Workstation: [facility], 02/18/2024 4:34 PM
--- NOTE | 2024-02-18 16:38 | XR ---
EXAMINATION TYPE: XR shoulder complete RT DATE OF EXAM: 02/18/2024 4:08 PM COMPARISON: None. CLINICAL INDICATION: Male, 68 years old with history of Z91.81 HISTORY OF FALLING, Pain TECHNIQUE: XR shoulder complete RT 3 view(s) obtained. FINDINGS: The humeral head articulates with the glenoid. Mild degenerative changes are evident. The acromio-clavicular junction is narrowed. No acute fractures or dislocations are evident. A follow up study can be performed 7-10 days from acute trauma for continued pain. MRI can be perfor med if soft tissue evaluation would be of benefit. IMPRESSION: 1. No acute osseous shoulder abnormality. [facility], Workstation: [facility], 02/18/2024 4:36 PM
--- NOTE | 2024-02-18 16:50 | CT ---
EXAMINATION TYPE: CT brain mac wo con DATE OF EXAM: 02/18/2024 4:05 PM COMPARISON: None. CLINICAL INDICATION: Male, 68 years old with history of Z91.81 HISTORY OF FALLING, headache and neck pain following fall TECHNIQUE: CT of the brain is performed utilizing 3 mm thick sections through the posterior fossa and 3 mm thick sections through the remaining calvarium. Study is performed within 24 hours of arrival to the hospital. Contrast used: mL of , (none if empty) CT DLP: 1884.4 mGycm, Automated exposure control for dose reduction was used. FINDINGS: No abnormal hyperdensity is present to suggest an acute intracranial hemorrhage. No mass lesion is evident. No acute infarcts are evident. Ventricles and sulci are appropriate for the patient age. Paranasal sinuses and mastoid air cells within the [id number] are clear. IMPRESSIONS: 1. No acute intracranial process. Follow-up MRI can be performed as clinically indicated. CT cervical spine. COMPARISON: None TECHNIQUE: CT of the cervical spine is performed in the axial plane at 2 mm thick sections. Reconstr ucted images in the coronal, and sagittal plane are reviewed on the computer. FINDINGS: No acute fractures are evident. Vertebral body alignment is normal. Mild diffuse disc space narrowing is present. Vertebral body heights are preserved. Posterior endplate spurring is noted greatest at C6 with moderate anterior thecal sac compression. Mi lder central spurring is present without spinal canal stenosis. Anterior vertebral body spurring is p resent. Multilevel foraminal narrowing is present greater on the right secondary to uncovertebral joint hyper trophy. IMPRESSION: 1. No acute osseous abnormality cervical spine [facility], Workstation: [facility], 02/18/2024 4:47 PM
== END | disposition home or self-care (01) ==
LOC: RADCTMAIN 15:35
PROVIDERS: ATTEND Internal Medicine
DX: S82.491A Other fracture of shaft of right fibula, initial encounter for closed fracture (principal); M48.02 Spinal stenosis, cervical region; M25.511 Pain in right shoulder; Z91.81 History of falling
CPT/HCPCS: 70450; 72125

== ENCOUNTER → 2024-04-01 | Outpatient (CLI) | payer MEDICARE, BC ==
--- NOTE | 2024-04-01 19:30 | MR ---
EXAMINATION TYPE: MR cervical spine wo con DATE OF EXAM: 04/01/2024 6:29 PM COMPARISON: 07/09/2022. CLINICAL INDICATION: Male, 68 years old with history of M50.30 OTHER CERVICAL DISC DEGENERATION, UNSP CERV; PHH, neck pain for 4 weeks TECHNIQUE: Multi planar, multi sequence imaging was performed utilizing: T1-weighted, T2-weighted, an d turbo inversion recovery imaging of the cervical spine. IV Contrast: mL (None, if empty) FINDINGS: Alignment: The cervical vertebral bodies have preserved heights. Alignment is within normal limits gi hank patient positioning. Bones: Scattered Modic endplate changes with osteophytes and disc space narrowing. Multilevel degener ative disc disease is noted and most pronounced at the C5-C7 vertebral levels with osteophyte formati on and disc space narrowing. Large osteophytes are present anteriorly along the cervical spine.. Cord: The spinal cord is unremarkable with regards to their signal intensity and morphology. Discs: Intervertebral disc signal is maintained. C2-C3: No significant disc pathology. The spinal canal is patent. Bilateral facet and uncovertebral joint arthropathy are present with mild right neural foraminal stenosis. The left neural foramen is p atent. C3-C4: No significant disc pathology. The spinal canal is patent. Bilateral facet and uncovertebral joint arthropathy are present with mild right neural foraminal stenosis. The left neural foramen is p atent. C4-C5: No significant disc pathology. The spinal canal is patent. No neural foraminal stenosis. C5-C6: A disc osteophyte complex is present which minimally narrows the ventral subarachnoid space. No neural foraminal stenosis. C6-C7: A disc osteophyte complex is present which minimally narrows the ventral subarachnoid space. No neural foraminal stenosis. C7-T1: No significant disc pathology. The spinal canal is patent. No neural foraminal stenosis. Other: None. IMPRESSION: 1. No evidence for disc herniation or significant spinal canal stenosis. 2. Mild disc degeneration with associated osteoarthritic changes. [facility], , 04/01/2024 7:28 PM
== END | disposition home or self-care (01) ==
LOC: RADMRIMAIN 17:49
PROVIDERS: ATTEND Internal Medicine
DX: M50.30 Other cervical disc degeneration, unspecified cervical region (principal)
CPT/HCPCS: 72141